=== PATIENT | male | born 1950 | race Caucasian/White ===

== ENCOUNTER → 2016-07-02 | Outpatient (CLI) | payer OTHER ==
[~2016-07-02] MED LIST: ASPI-391 PEG; ATOR10TA82 PO; HYDR25TA4 PO; LISI-725 PO; MULT-164 PO
[2016-07-02 13:51] LABS: ESTIMATED AVERAGE GLUCOSE 108 mg/dl; HA1C FLAG Normal (Normal)
== END ==
LOC: C.LABBFT 08:16
PROVIDERS: ATTEND Physician Assistant Medical
DX: R73.01 Impaired fasting glucose (principal)

== ENCOUNTER → 2016-11-30 | Outpatient (CLI) | payer OTHER ==
[~2016-11-30] MED LIST changes: -ASPI-391 PEG; -ATOR10TA82 PO
[2016-11-30 13:05] LABS: ESTIMATED AVERAGE GLUCOSE 111 mg/dl; HA1C FLAG Normal (Normal)
[2016-11-30 13:25] LABS: ALB/GLOB RATIO 1.1 (0.9-2); ALT/SGPT 26 U/L (12-78); AST/SGOT 12 U/L (15-37); BLOOD UREA NITROGEN 16 mg/dl (7-18); BUN/CREATININE RATIO 12.5 (10-20); CALCIUM 9.1 mg/dl (8.5-10.1); CARBON DIOXIDE 26 mmol/L (21-32); CHLORIDE 104 mmol/L (98-107); GLUCOSE 96 mg/dl (70-99); SODIUM 137 mmol/L (136-145)
[2016-11-30 13:27] LABS: ALKALINE PHOSPHATASE 61 U/L (45-117); CHOLESTEROL 135 mg/dl (0-200); CHOLESTEROL/HDL RATIO 2.4; HDL CHOLESTEROL 57 mg/dl; LDL CHOLESTEROL CALCULATED 56 mg/dl; TRIGLYCERIDES 108 mg/dl (0-150); VERY LOW DENSITY LIPOPROT CALC 22 mg/dl
== END | disposition home or self-care (01) ==
LOC: C.LABBFT 07:35
PROVIDERS: ATTEND Physician Assistant Medical
DX: E78.5 Hyperlipidemia, unspecified (principal); R73.01 Impaired fasting glucose

== ENCOUNTER → 2016-12-14 | Outpatient (CLI) | payer OTHER ==
[2016-12-14 17:48] LABS: PROSTATE SPECIFIC ANTIGEN 3.3 ng/ml (0.000-4.000); THYROID STIMULATING HORMONE 0.901 uIu/ml (0.300-4.500)
== END | disposition home or self-care (01) ==
LOC: C.LABBFT 13:14
PROVIDERS: ATTEND Internal Medicine
DX: R53.83 Other fatigue (principal); N40.0 Benign prostatic hyperplasia without lower urinary tract symptoms

== ENCOUNTER 2017-03-09 06:53 | Day surgery (SDC) | payer OTHER ==
[2017-02-16 13:04] VITALS: Ht 182.9 cm; Wt 100.8 kg
--- NOTE | 2017-02-16 13:30 | PAT Medication Instructions ---
Service Date Feb 16, 2017. Current Home Medication List Njfmxnf-Sdikrrfsgtzke-Snmsbcop (Excedrin Extra Strength), 2 TAB PEG PRN Atorvastatin (Lipitor), 10 MG PO HS Hydrochlorothiazide (Hctz), 25 MG PO QAM Lisinopril (Zestril), 20 MG PO QAM Medication Instructions For Your Scheduled Surgery - Check with surgeon for instructions: Vddwyfe-Lsqtoeedoalvi-Wudtogpo (Excedrin Extra Strength), 2 TAB PEG PRN - Hold the following medications the morning of surgery: Hydrochlorothiazide (Hctz), 25 MG PO QAM Lisinopril (Zestril), 20 MG PO QAM - Take the following medications as scheduled the night before surgery: Atorvastatin (Lipitor), 10 MG PO HS If you have any questions please call us at [phone] or [phone] or [phone]
--- NOTE | 2017-02-16 14:22 | DIAGNOSTIC IMAGING REPORT ---
CHEST 2 VIEWS ROUTINE HISTORY: 66 years-old Male pat preoperative exam. Benign prostatic hyperplasia. No acute chest complaints COMPARISON: None available TECHNIQUE: PA and lateral views of the chest FINDINGS: Catheter granulomas of the lateral left midlung are noted. No pneumothorax, pleural effusion, focal airspace consolidation or overt pulmonary edema. Cardiomediastinal and hilar silhouettes are within normal limits. Bones of the chest are grossly intact. Degenerative changes involve the spine and shoulders. IMPRESSION: No acute cardiopulmonary process. The above report was generated using voice recognition software. It may contain grammatical, syntax or spelling errors. Electronically signed by: Jessee Ramsey M.D. 02/16/2017 2:20 PM Dictated Date/Time: 02/16/2017 2:20 PM
[2017-02-16 14:32] LABS: BASO % 0.4 %; BASO ABS # 0.04 K/uL (0-0.2); COMPLETE YES; EOS % 1.2 %; HEMATOCRIT 43.1 % (42-52); IG% 0.7 %; LYMPH % 16.7 %; LYMPH ABS # 1.74 K/uL (1.2-3.4); MEAN CELL VOLUME 90.7 fL (80-100); MEAN CORPUSCULAR HEMOGLOBIN 32.2 pg (25-34); MEAN CORPUSCULAR HGB CONC 35.5 g/dl (32-36); MEAN PLATELET VOLUME 9.5 fL (7.4-10.4); MONO % 6.6 %; NEUT % 74.4 %; PLATELET COUNT 259 K/uL (130-400); RED BLOOD COUNT 4.75 M/uL (4.7-6.1); WHITE BLOOD COUNT 10.41 K/uL (4.8-10.8)
[2017-02-16 14:32] LABS: URINE APPEARANCE CLEAR (CLEAR); URINE BILIRUBIN NEG (NEG); URINE COLOR YELLOW; URINE NITRITE NEG (NEG); URINE PH 5.5 (4.5-7.5); URINE SPECIFIC GRAVITY 1.018 (1.000-1.030); UROBILINOGEN NEG (NEG)
[2017-02-16 14:34] LABS: MANUAL MICROSCOPIC REQUIRED? NO; REVIEW REQ? NO
[2017-02-16 14:53] LABS: BUN/CREATININE RATIO 14.8 (10-20); CALCIUM 9.1 mg/dl (8.5-10.1); CREATININE 1.35 mg/dl (0.60-1.40)
[~2017-03-09] VITALS: Ht 182.9 cm; Wt 100.8 kg
[~2017-03-09 06:53] MED LIST changes: +ASPI-391 PEG; +ATOR10TA82 PO; +CIPROFLOXACIN / D5W 400 MG IV SCH; +LACTATED RINGER'S 1000ML 1,000 ML IV SCH; -MULT-164 PO
[2017-03-09 07:15] VITALS: BP 137/87; PULSE 80; TEMP 36.9; O2SAT 95
[2017-03-09] MEDS ORDERED: HYDROmorphone INJ 1 MG/ML SYR IV PRN (08:15)
[2017-03-09] MEDS ORDERED: ONDANSETRON INJ 2 MG/ML 2 ML VIAL IV PRN (08:15)
[2017-03-09] MEDS ORDERED: ATROPINE SULFATE 0.1 MG/ML 5ML SYR IV PRN (08:15)
[2017-03-09] MEDS ORDERED: FENTANYL CITRATE INJ 50 MCG/1 ML 2 ML VIAL IV PRN (08:15)
[2017-03-09] MEDS ORDERED: PROMETHAZINE HCL INJ 12.5 MG in SODIUM CHLORIDE 0.9% 50ML 50 ML IV PRN (08:15)
[2017-03-09] MEDS ORDERED: EpHEDrine SULFATE INJ 50 MG/ML AMP IV PRN (08:15)
[2017-03-09] MEDS ORDERED: PROPOFOL IV EMULSION 10 MG/ML 20 ML VIAL IV ONE (09:13)
[2017-03-09] MEDS ORDERED: LIDOCAINE HCL 2% 2 ML VIAL (20MG/ML) ONE (09:13)
[2017-03-09] MEDS ORDERED: MIDAZOLAM HCL 1 MG/ML 2ML VIAL ONE (09:13)
[2017-03-09] MEDS ORDERED: FENTANYL CITRATE INJ 50 MCG/1 ML 2 ML VIAL ONE (09:13)
--- NOTE | 2017-03-09 09:13 | History & Physical Bridge Note ---
H&P Re-Evaluation Bridge Note: I have examined the patient, reviewed the History & Physical and in the interval since the performance of the History & Physical I have noted the following changes of clinical significance: No changes noted
[2017-03-09] MEDS ORDERED: PHEN95TA14 PO (09:24)
[2017-03-09] MEDS ORDERED: HYDR-5688 PO (09:24)
[2017-03-09] MEDS ORDERED: CIPR-255 PO (09:24)
--- NOTE | 2017-03-09 09:25 | Discharge Instructions ---
Discharge Instructions Date of Service Mar 09, 2017. Admission Reason for Admission: Benign Prostatic Hyperplasia Discharge Discharge Diagnosis / Problem: BPH Discharge Goals Goal(s): Decrease discomfort, Improve function, Increase independence, Improve disease control Activity Recommendations Activity Limitations: resume your previous activity Lifting Limitations: none Exercise/Sports Limitations: none May Resume Sexual Activity: when tolerated Shower/Bathe: no limitations Driving or Machine Use: resume 1 day after discharge . Instructions / Follow-Up Instructions / Follow-Up Please keep your previously scheduled follow up appointment. Current Hospital Diet Patient's current hospital diet: Discharge Diet Recommended Diet: Regular Diet Pending Studies Studies pending at discharge: no Medical Emergencies . Who to Call and When: Medical Emergencies: If at any time you feel your situation is an emergency, please call 911 immediately. . Non-Emergent Contact Non-Emergency issues call your: Urologist Call Non-Emergent contact if: you have a fever, temperature is above 101.5, your pain is not controlled, your pain is worsening . . "Provider Documentation" section prepared by Pipo Piña. . VTE Core Measure Inpt VTE Proph given/why not?: Treatment not indicated [place] Drug Monitoring Program Search Results: patient reviewed within database, no issues identified
[2017-03-09] MEDS ORDERED: SODIUM CHLORIDE 0.9% 1000ML 1,000 ML IV SCH (09:54)
[2017-03-09] MEDS ORDERED: PHENAZOPYRIDINE HCL 200 MG TAB PO STA (09:54)
--- NOTE | 2017-03-09 09:56 | [facility] Operative Report ---
Operative Report Operative Date Mar 09, 2017. Pre-Operative Diagnosis Benign Prostatic Hyperplasia Post-Operative Diagnosis Benign Prostatic Hyperplasia Procedure(s) Performed Cystoscopy & Urolift Surgeon Dr.C. Gonzalez Lumber Racker Surgeon(s) none Estimated Blood Loss 0mL Findings Lateral lobe hypertrophy with a moderately high bladder neck; healthy-appearing bladder Specimens none per surgeon Drains none Anesthesia sedation Complication(s) None Disposition Recovery Room / PACU Indications Symptomatic BPH Description of Procedure Patient was identified in the preoperative holding area, appropriate informed consents were reviewed and completed and the patient was transported to the operating suite. Upon arrival he received appropriate preoperative antibiotics in the form of ciprofloxacin. Adequate sedation was achieved, and he was placed in dorsal lithotomy position where he was sterilely prepped and draped in standard fashion. I began the case by passing a cystoscope with 0 lens. Inspection of the urethra revealed healthy-appearing mucosa without evidence of strictures. Prostate was inspected, and he was noted to have lateral lobe hypertrophy. Full inspection of the bladder was carried out. There were no tumors, stones, or other abnormalities. I then exchanged visual obturator for the first uro-lift device. The first suture was deployed on the right side of the prostate approximately 1 cm in from the bladder neck. A mirror image suture was then deployed on the left. A third suture was placed adjacent to the verumontanum on the right. A fourth suture was placed in a mirror image of this location on the left. There was excellent hemostasis. I reinspected the bladder and prostate and confirmed an excellent anterior channel. I attest to the content of the Intraoperative Record and any orders documented therein. Any exceptions are noted below.
[2017-03-09] MEDS ORDERED: OXYCODONE/ACETAMINOPHEN 5-325 TAB PO PRN ×2 (10:00)
--- NOTE | 2017-03-09 10:11 | Anesthesiology Progress Note ---
Anesthesia Post Op Note Date & Time Mar 09, 2017 at 10:11 Vital Signs Pain Intensity: 0 Vital Signs Past 12 Hours Date Time Temp Pulse Resp B/P (MAP) Pulse Ox O2 Delivery O2 Flow Rate FiO2 03/09/17 07:15 36.9 80 18 137/87 (104) 95 Room Air Notes Mental Status: alert / awake / arousable, participated in evaluation Pt Amnestic to Procedure: Yes Nausea / Vomiting: adequately controlled Pain: adequately controlled Airway Patency, RR, SpO2: stable & adequate BP & HR: stable & adequate Hydration State: stable & adequate Anesthetic Complications: no major complications apparent Awake, doing well, no complaints.
[2017-03-09 10:30] VITALS: BP 133/94; PULSE 78; TEMP 36.5; O2SAT 96
[2017-03-09 11:00] VITALS: BP 156/92; PULSE 84; TEMP 36.5; O2SAT 96
== END 2017-03-09 11:10 | disposition home or self-care (01) ==
LOC: C.ACU 06:53
PROVIDERS: ATTEND Urology
DX: N40.1 Benign prostatic hyperplasia with lower urinary tract symptoms (principal); N13.8 Other obstructive and reflux uropathy; I10 Essential (primary) hypertension; E78.5 Hyperlipidemia, unspecified; M15.9 Polyosteoarthritis, unspecified; R73.01 Impaired fasting glucose; Z87.891 Personal history of nicotine dependence; Z79.899 Other long term (current) drug therapy; E66.9 Obesity, unspecified; Z68.30 Body mass index [BMI] 30.0-30.9, adult

== ENCOUNTER 2020-02-05 08:20 | Inpatient (IN) ==
--- NOTE | 2020-01-18 10:25 | Anesthesiology Consultation ---
Date of Service January 18, 2020 Assessment & Plan (1) Encounter for pre-operative examination: Per assessment on 01/16: Travel screen negative. No known COVID-19 positive contacts or current COVID-19 related symptoms. Surgeon arranging preop COVID testing. Awaiting results. Chart Review Chart Review: Acceptable Risk for Surgery and Patient NOT seen in Pre Admission Testing History Surgery Operation Date: 02/05/20 11:00 Proposed Procedures p Right Total Shoulder Arthroplasty - Fernando Paulson DO s Versus Reverse Total Shoulder Arthroplasty - Fernando Paulson DO Height/Weight Height: 6 ft Weight: 99.79 kg Allergies Allergy/AdvReac Type Severity Reaction Status Date / Time No Known Allergies Allergy Unknown Verified 01/17/20 15:08 Medications Home Medications Medication Instructions Recorded Confirmed Last Taken multivitamin 1 tab PO QAM 12/20/18 01/17/20 Unknown meloxicam 15 mg tablet 15 mg PO DAILY PRN 12/26/19 01/17/20 Unknown atorvastatin 10 mg PO PM 01/17/20 01/17/20 Unknown glucosamine sulfate [Glucosamine] 500 mg PO QAM 01/17/20 01/17/20 Unknown hydrochlorothiazide 25 mg PO QAM 01/17/20 01/17/20 Unknown lisinopril 20 mg PO QAM 01/17/20 01/17/20 Unknown Past Medical History Medical History BPH (benign prostatic hyperplasia) Elevated PSA under surveillance Hyperlipidemia Hypertension Osteoarthritis Past Family History Family History Father Cancer Lung cancer Mother Ovarian cancer Brother Cancer Sister Hypertension Denies family history of Prostate cancer Diabetes Depression Myocardial infarction Breast cancer Stroke Past Surgical History Surgical History History of colonoscopy History of herniorrhaphy History of prostate surgery + stent Social History Smoking Status: Former smoker tobacco type: smokeless tobacco Do You Dip or Chew Tobacco: Yes (1 can/3-4 days: RN advised NPO AM DOS) Smoking End Date: Quit Hx Alcohol Use: No Hx Substance Use: No substance use type: does not use Testing Laboratory Results Blood Type A Positive 01/15/20 15:40 Antibody Screen NEGATIVE 01/15/20 15:40 01/15/20 WBC 11.35 H/H 16.3/47.6 PLATELETS 276 SODIUM 139 POTASSIUM 4.3 CHLORIDE 107 CO2 29 BUN 28 CREATININE 1.43 GLUCOSE 82 PT 10.3 PTT 27.9 INR 1.0 12/18/19 HGBA1C 5.5% Electrocardiogram Date: 01/15/20 Findings: + NSR @ (80) Chest X-Ray Date: 01/15/20 FINDINGS: Stable punctate calcified granulomas within left midlung zone. The lungs are otherwise clear. No pleural effusions. No pneumothorax. The heart is normal in size. IMPRESSION: No significant change compared to the prior study. No acute process.
--- NOTE | 2020-01-31 20:31 | History & Physical Report ---
Date of Service January 31, 2020 Assessment & Plan (1) Osteoarthritis of right shoulder: We will proceed with a right total shoulder arthroplasty. Postoperatively he will be placed in a sling and kept overnight in the hospital for postoperative medical management. He plans to go to [facility] and [place] upon discharge. Present on Admission?: Yes History of Present Illness Chief Complaint: Primary osteoarthritis of the right shoulder Primary Care Provider: Sid Zacarias MD Jonathan is a pleasant 69-year-old male who is been dealing with chronic increasing right shoulder pain. X-rays and clinical examination have been diagnostic for advanced osteoarthritis of the right shoulder. After failing conservative treatment, he has elected to proceed with a right total shoulder arthroplasty. Allergies Allergy/AdvReac Type Severity Reaction Status Date / Time No Known Allergies Allergy Unknown Verified 01/17/20 15:08 Home Medications Home Medications Medication Instructions Recorded Confirmed Type multivitamin 1 tab PO QAM 12/20/18 01/17/20 History meloxicam 15 mg tablet 15 mg PO DAILY PRN 12/26/19 01/17/20 History glucosamine sulfate [Glucosamine] 500 mg PO QAM 01/17/20 01/17/20 History hydrochlorothiazide 25 mg PO QAM 01/17/20 01/17/20 History lisinopril 20 mg PO QAM 01/17/20 01/17/20 History atorvastatin 10 mg tablet 10 mg PO DAILY #90 tab 01/24/20 Rx Past Med/Surg History Medical History BPH (benign prostatic hyperplasia) Elevated PSA under surveillance Hyperlipidemia Hypertension Osteoarthritis Surgical History History of colonoscopy History of herniorrhaphy History of prostate surgery + stent Family History Father Cancer Lung cancer Mother Ovarian cancer Brother Cancer Sister Hypertension Denies family history of Prostate cancer Diabetes Depression Myocardial infarction Breast cancer Stroke Social History Smoking Status: Former smoker Tobacco Type: Smokeless Tobacco (Dip or Chew) Second Hand Exposure: Yes; Hx Alcohol Use: No Hx Substance Use: No Preferred Language: Slovenian Communication Ability: Effective Outgoing Inspector Required: No Beliefs That Will Affect Care: None marital status: Current Living Situation: Spouse current occupational status: employed 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 Feels Safe at Home: Yes Childhood Exposure to Second-Hand Smoke: No caffeine: Yes (coffee daily) Dental Care, Regularly: Yes Physical Activity Frequency: Does not Exercise Seatbelt Use: always Sunscreen Use: Yes Assistive Devices: Glasses Review of Systems Review of Systems: All systems reviewed & are unremarkable except as noted in HPI & below Physical Exam Constitutional: WD/WN, vitals as above Eyes: PERRL, conjunctivae normal, anicteric sclerae ENMT: external ear and nose normal, oropharynx normal Neck: trachea midline, no thyromegaly Respiratory: normal respiratory effort Cardiovascular: RRR, no murmur, no edema Gastrointestinal (Abdomen): normal bowel sounds, soft, nontender, no hepatosplenomegaly Musculoskeletal: Physical examination of the right shoulder reveals decreased range of motion and crepitis throughout. There is good strength with full can t esting and external rotation. There is tenderness palpation along the anterior glenohumeral joint line. The right upper extremity is neurovascularly intact. Psychiatric: A+Ox3, euthymic affect Results & Data Results & Data ([facility]) Diagnostic Findings Radiographs of the right shoulder show osteoarthritis of the glenohumeral joint. There is joint space narrowing, osteophyte formation, and [id number] articulation. PG Care Time/CCT Total # of Minutes Spent Total Time Spent with Patient: Total time spent is greater than 50% in coordination of care (as documented) at patient's floor/unit and/or counseling patient: Coding Level of Care Code None Diagnoses Osteoarthritis of right shoulder M19.011
[~2020-02-05 08:20] MED LIST changes: +ACETAMINOPHEN 500 MG TAB PO SCH; -ASPI-391 PEG; -ATOR10TA82 PO; +BUPIVACAINE 0.5 % 5 MG/1 ML PF 10ML VIAL ONE; -CIPROFLOXACIN / D5W 400 MG IV SCH; +FAMOTIDINE 20 MG TAB PO SCH; +GABAPENTIN 300 MG CAP PO SCH; -HYDR25TA4 PO; -LACTATED RINGER'S 1000ML 1,000 ML IV SCH; -LISI-725 PO; +LR 15ML/HR IV SCH; +LR 60ML/HR IV SCH; +ROPIVACAINE 0.5% HCL/PF 150 MG, BUPIVACAINE 0.5% MPF 30 ML, EPINEPHrine 30MG/30ML (OR U... INSTIL SCH; +TRANEXAMIC ACID 1,000 MG **IV Intra-op IV SCH; +TRANEXAMIC ACID 1,000 MG **IV Pre-op IV SCH; +ceFAZolin 2000MG 2,000 MG/15 ML SYR IV SCH; +dexAMETHasone 4 MG TAB PO SCH
--- NOTE | 2020-02-05 09:35 | History & Physical Bridge Note ---
Date of Service February 05, 2020 History & Physical Bridge Note I have examined the patient, reviewed the History & Physical and in the interval since the performance of the History & Physical I have noted the following changes of clinical significance: no changes noted
[2020-02-05] MEDS ORDERED: DEXAMETHASONE SOD INJ 4 MG/ML VIAL ONE (10:10)
[2020-02-05] MEDS ORDERED: PROPOFOL IV EMULSION 10 MG/ML 20 ML VIAL IV ONE (10:10)
[2020-02-05] MEDS ORDERED: LIDOCAINE HCL 2% 2 ML VIAL/AMP(20MG/ML) INFIL ONE (10:10)
[2020-02-05] MEDS ORDERED: ROCURONIUM BROMIDE 10 MG/ML 5 ML VIAL IV ONE (10:10)
[2020-02-05] MEDS ORDERED: fentaNYL citrate 100 MCG/2 ML VIAL ONE (10:10)
[2020-02-05] MEDS ORDERED: MIDAZOLAM HCL 1 MG/ML 2ML VIAL ONE (10:10)
[2020-02-05] MEDS ORDERED: ONDANSETRON INJ 2 MG/ML 2 ML VIAL ONE (10:10)
[2020-02-05] MEDS ORDERED: HYDROmorphone INJ 2 MG/ML SYR/VIAL IV PRN (11:02)
[2020-02-05] MEDS ORDERED: ATROPINE SULFATE 0.1 MG/ML 10ML SYR IV PRN (11:02)
[2020-02-05] MEDS ORDERED: ePHEDrine sulfate 50 MG/ML AMP IV PRN (11:02)
[2020-02-05] MEDS ORDERED: PROMETHAZINE HCL 6.25 MG in SODIUM CHLORIDE 0.9% 50 ML IV PRN (11:02)
[2020-02-05] MEDS ORDERED: ONDANSETRON INJ 2 MG/ML 2 ML VIAL IV PRN ×2 (11:02→14:46)
[2020-02-05] MEDS ORDERED: fentaNYL citrate 100 MCG/2 ML VIAL IV PRN (11:02)
[2020-02-05] MEDS ORDERED: ORTHO JOINT ANESTHETIC ONE (11:24)
[2020-02-05] MEDS ORDERED: NEOSTIGMINE METHYLSULFATE 5 MG/5 ML SYR ONE (13:21)
[2020-02-05] MEDS ORDERED: GLYCOPYRROLATE 0.2 MG/ML VIAL ONE (13:21)
--- NOTE | 2020-02-05 13:36 | Operative Report ---
PG Post Operative Report Pre & Post Diagnosis Operation Date: 02/05/20 10:55 Pre-Op Diagnosis: Right Shoulder Degenerative Joint Disease with tendinopathy of the long head of the biceps tendon Post-Op Diagnosis: Right Shoulder Degenerative Joint Disease with tendinopathy of the long head of the biceps tendon I identified the patient and participated in the time-out.: Yes Procedure Operation Date: 02/05/20 10:55 Actual Procedures p Right Total Shoulder Arthroplasty with open biceps tenodesis as a distinct and separate procedure (modifier 59) (Right) - Fernando Paulson DO Surgeon Fernando Paulson DO Auto Damage Insurance Appraiser Fernando Ribeiro PAC Estimated Blood Loss 300 Findings Consistent with Post-Op Diagnosis Specimens Right humeral head Complications none Disposition Disposition: Recovery Room Indications Jonathan is a pleasant six 9-year-old male who presented my office with chronic increasing right shoulder pain. X-rays and clinical examination were diagnostic for advanced osteoarthritis of the right shoulder. After failing conservative treatment, he elected to proceed with a right total shoulder arthroplasty. Description of Procedure A CPT code modifier 59: The long head of the biceps tendon was enlarged and inflamed consistent with tendinopathy. A tenodesis was opted. This was a separate and distinct portion of the procedure. For these reasons, a CPT code modifier 59 will be added to this case. Implants used: I used a [employer] Comprehensive total shoulder arthroplasty system with a size 20 press fit micro humeral stem, a size 54 x 21 eccentric humeral head, and a size 5 glenoid with a trabecular metal peg. The glenoid was cemented in place with Palacos G cement. Jonathan arrived at [facility] for the above procedure. He was seen in the preoperative holding area and the operative extremity was identified and signed. He was given a preoperative antibiotic, TXA, and an interscalene nerve block. He was taken back to the operating room, laid on table in supine position, and put under general anesthesia. He was then put into the beachchair position. The shoulder was then prepped and draped in sterile fashion. A timeout was done and the patient and the operative extremity was properly identified. A deltopectoral approach was used. Dissection was taken down through the fascia and the deltoid was retracted laterally and the conjoined tendon was retracted medially. The anterior shoulder was exposed. The biceps groove was opened up and the biceps tendon was examined extensively. The biceps tendon demonstrated enlargement and inflammatory changes consistent with longstanding inflammation in the context of osteoarthritis. The long head of the biceps tendon was then tenodesed to the upper border of the pectoralis major. This was a separate and distinct portion of the procedure. The subscapularis was then released off the lesser tuberosity with a centimeter of cuff tissue remaining. The inferior capsule was released and the humeral head was dislocated. The rotator cuff was inspected and intact. A canal finding reamer was sent down the center of the humeral canal. Sequential reaming up to a size 20 reamer was done. Offset reamer a proximal humeral resection guide was placed. The proximal humerus was resected at 135 of inclination and 30 of retroversion. Inferior osteophytes were then removed and the glenoid was exposed. Time was spent doing an appropriate labral release. The glenoid measured to be a size 5. A 3.2 mm Steinmann pin was placed in the central hole of the glenoid vault pin guide. The glenoid was then reamed with a propeller reamer. The central post cutter was then used to prepare for the central boss. The cannulated peripheral peg drill guide was then placed and 3 peg holes were drilled. The final size 5 glenoid was then cemented in place with Palacos G cement. Surrounding soft tissues were then injected with 100 cc of an orthopedic pain control cocktail. Once cement had dried the proximal humerus was once again exposed. Sequential broaching of the humerus up to a size 20 broach was done. Off that broach a size 54 x 21 eccentric humeral head was trialed. The shoulder was then reduced, brought through a full range of motion, and felt to be stable. The shoulder was then dislocated and the broach was removed. The final size 20 micro humeral stem implant was then impacted into place. A size 54 x 21 eccentric humeral head was then impacted onto the humeral stem. The shoulder was then reduced and once again brought through a full range of motion and felt to be stable. The subscapularis was then tenodesed back to the lesser tuberosity with transosseous FiberWire sutures and side to side sutures with the arm in 45 of external rotation. 2 sutures were placed in the lateral rotator interval. A dilute betadyne lavage was then done for 3 minutes. The joint was then irrigated with normal saline solution. Hemostasis was obtained. The interval was closed with 2-0 Vicryl suture. The skin was closed with 2-0 Vicryl and naseem. A Silverlon dressing was placed and the arm was rested in a regular arm sling. He was then extubated and transferred to a hospital bed. He was taken to the postanesthesia care unit in stable condition. He tolerated the procedure well. Fernando Ribeiro PA-C, was present for the entire procedure. He was critical for patient positioning, prepping, draping, retraction exposure, wound closure and application of sterile dressing. I attest to the content of the Intraoperative Record and any orders documented therein. Any exceptions are noted below.
--- NOTE | 2020-02-05 14:31 | XRay Report ---
XR shoulder RT min 2V routine CLINICAL HISTORY: Post shoulder surgery COMPARISON: Right shoulder radiographs January 08, 2020. FINDINGS: Alignment of the right shoulder arthroplasty is anatomic. There is no fracture or unexpect ed radiopaque foreign body. There are skin naseem. IMPRESSION: Expected findings following right shoulder arthroplasty. ACT 112: Negative or not required by law. Electronically signed by: Hakan Moore M.D. 02/05/2020 2:29 PM
[2020-02-05] MEDS ORDERED: bisacodyL 10 MG SUPP PR PRN (14:46)
[2020-02-05] MEDS ORDERED: NALOXONE HCL 0.4 MG/1 ML VIAL/CARP IV PRN (14:46)
[2020-02-05] MEDS ORDERED: MAGNESIUM HYDROXIDE SUSP 30 ML UDC PO PRN (14:46)
[2020-02-05] MEDS ORDERED: oxyCODONE HCL IR 5 MG TAB (IMMEDIATE RELEASE) PO PRN (14:46)
[2020-02-05] MEDS ORDERED: METOCLOPRAMIDE HCL INJ 5 MG/ML 2 ML VIAL IV PRN (14:46)
[2020-02-05] MEDS ORDERED: HYDROmorphone INJ 0.5 MG/0.5 ML SYR IV PRN (14:46)
--- NOTE | 2020-02-05 14:50 | Anesthesiology Progress Note ---
Date of Service February 05, 2020 Anesthesia Post Procedure Vital Signs Vital Signs: Temp Pulse Pulse Resp BP Pulse Ox 02/05/20 14:35 36.4 C L 73 14 119/81 93 02/05/20 14:24 36.4 C L 68 16 110/55 L 95 02/05/20 14:14 68 16 104/61 95 02/05/20 14:05 80 14 108/74 95 02/05/20 13:55 80 14 128/77 95 02/05/20 13:47 36.0 C L 86 14 146/84 H 95 02/05/20 09:24 75 20 128/95 96 02/05/20 08:45 36.8 C 79 18 147/88 H 95 Transfer of Care Handoff Completed per policy Notes Mental Status: alert / awake / arousable Patient Amnestic to Procedure: Yes Nausea / Vomiting: adequately controlled Pain: adequately controlled Airway Patency, RR, SpO2: stable & adequate BP & HR: stable & adequate Hydration State: stable & adequate Anesthetic Complications: no major complications apparent Notes: block working well in pacu
[2020-02-05] MEDS: SODIUM CHLORIDE 0.9% 1000ML 1,000 ML IV SCH ×2 (15:55→23:25)
[2020-02-05] MEDS: KETOROLAC 30 MG/ML VIAL IV SCH ×2 (16:03→21:23)
[2020-02-05] MEDS: ACETAMINOPHEN 500 MG TAB PO SCH ×2 (16:03→21:23)
[2020-02-05] MEDS: ceFAZolin 2000MG 2,000 MG/15 ML SYR IV SCH (19:40)
[2020-02-05] MEDS ORDERED: SENNA 8.6 MG TAB PO SCH (21:00)
[2020-02-05] MEDS: DOCUSATE SODIUM 100 MG CAP PO SCH (21:23)
[2020-02-06] MEDS: ceFAZolin 2000MG 2,000 MG/15 ML SYR IV SCH (03:13)
[2020-02-06] MEDS: KETOROLAC 30 MG/ML VIAL IV SCH ×2 (03:13→08:18)
[2020-02-06] MEDS: ACETAMINOPHEN 500 MG TAB PO SCH (05:27)
[2020-02-06 07:27] LABS: Eosinophils # (auto) 0.01 K/uL (0-0.5); Eosinophils % (auto) 0.1 %; Hematocrit (blood only) 40.3 % (42-52); Hemoglobin 13.6 g/dL (14.0-18.0); Immature Granulocytes # (auto) 0.07 K/uL (0.00-0.02); Immature Granulocytes % (auto) 0.4 %; Lymphocytes # (auto) 0.48 K/uL (1.2-3.4); Lymphocytes % (auto) 2.7 %; Mean Corpuscular Hemoglobin 31.1 pg (25-34); Mean Corpuscular Hgb Conc 33.7 g/dL (32-36); Monocytes # (auto) 0.83 K/uL (0.11-0.59); Monocytes % (auto) 4.7 %; Neutrophils # (auto) 16.37 K/uL (1.4-6.5); Neutrophils % (auto) 92.1 %; Platelet Count 242 K/uL (130-400); RDW Coefficient of Variation 12.3 % (11.5-14.5); RDW Standard Deviation 41.7 fL (36.4-46.3); Red Blood Count 4.38 M/uL (4.7-6.1); White Blood Count 17.76 K/uL (4.8-10.8)
--- NOTE | 2020-02-06 07:48 | Orthopedic Progress Note ---
Date of Service February 06, 2020 Assessment & Plan (1) Status post replacement of right shoulder joint: Jonathan's pain has been well controlled. He is recovering as expected up to this point. Patient will continue working with physical therapy for range of motion assistance. He will remain in the sling at all times with the exception of showering. From an orthopedic standpoint, he is ready for discharge. He is awaiting medical clearance. Once discharged, he will [facility] in 2 weeks for reevaluation at that time. Admission and Anticipated Discharge Date Admission Date: February 05, 2020 Chelsey Castillo was seen and examined at bedside today with Dr. Paulson. Patient's pain has been well controlled. He was able to sleep comfortably through the night. The numbness and tingling in his right upper extremity has diminished. He has been working with physical therapy for gentle range of motion exercises. He has no new complaints today. He denies any fever, chills, sweats. He is hoping for discharge soon. Review of Systems Constitutional: no fever, no chills and no problem reported Eyes: as per Subjective / HPI; no problem reported Ear, Nose, Mouth, Throat: as per Subjective / HPI; no problem reported Respiratory: as per Subjective / HPI; no problem reported Cardiovascular: no edema and no problem reported Gastrointestinal: no nausea, no vomiting and no problem reported Genitourinary: no problem reported Musculoskeletal: as per Subjective / HPI Integumentary: as per Subjective / HPI; no problem reported Neurologic: no tingling, no paresthesia and no problem reported Psychiatric: no problem reported Endocrine: as per Subjective / HPI Hematologic / Lymphatic: as per Subjective / HPI Allergy / Immunological: no problem reported Physical Exam Musculoskeletal: Jonathan was sitting comfortably in bed upon arrival today, in no acute distress. He is alert and oriented x3. Right upper extremity: Sling remained in place. He is able to flex and extend his wrist with full active range of motion of his digits. Overlying dressing appears clean and dry without evidence of discharge. Neurovascularly intact. Results & Data ([facility]) Vital Signs (Past 12 Hours) Vital Signs Temp Pulse Resp BP Pulse Ox 02/06/20 03:15 36.4 C L 74 16 107/68 94 02/05/20 23:11 36.4 C L 71 16 109/76 93 PG Care Time/CCT Total # of Minutes Spent Total Time Spent with Patient: Total time spent is greater than 50% in coordination of care (as documented) at patient's floor/unit and/or counseling patient: Coding Level of Care Code None Diagnoses Status post replacement of right shoulder joint Z96.611
--- NOTE | 2020-02-06 07:55 | Discharge Summary ---
Date of Service February 06, 2020 Admission HPI Per Admitting Provider Jonathan is a pleasant 69-year-old male who is been dealing with chronic increasing right shoulder pain. X-rays and clinical examination have been diagnostic for advanced osteoarthritis of the right shoulder. After failing conservative treatment, he has elected to proceed with a right total shoulder arthroplasty. Principal Diagnosis Right total shoulder replacement Discharge Data Allergies Allergy/AdvReac Type Severity Reaction Status Date / Time No Known Allergies Allergy Unknown Verified 02/05/20 08:39 Consultations 02/05/20 14:46 Consult Case Management - Discharge Planning Routine Procedures Performed Operation Date: 02/05/20 10:55 Actual Procedures p Right Total Shoulder Arthroplasty(Right) - Fernando Paulson DO Ordered Studies 02/05/20 05:00 US - OR guided needle placemen Routine Hospital Course (1) Status post replacement of right shoulder joint: Jonathan is a 69-year-old male who presented to [facility] on February 05, 2020 for right total shoulder arthroplasty. He was given general anesthetic and a right interscalene nerve block. The procedure was uncomplicated. He was then transferred to the general orthopedic floors. On postop day 1, his pain was well controlled. He did work with physical therapy for range of motion assistance. He wore his sling as instructed and will continue to do so. His H&H and vital signs appeared stable. He was then discharged home. He will follow-up in our orthopedic office in 2 weeks for reevaluation at that time. Total Time Total Time Spent Total Time Spent (In Minutes): 20 minutes Discharge Plan Discharge Items Patient Disposition: Home - Home Health Services Reason For Visit: Right Shoulder DJD Discharge Diagnosis: Right shoulder replacement Activity: As commented below Non-emergency contact: Surgeon Call non-emergency contact if: your wound has increased redness and your wound has increased drainage Follow-up/Referrals: Pipo Zacarias MD [Primary Care Provider] - Diet: Regular Addtl Attending Provider Instructions: Activity and Therapy Recommendations: * If you are using [facility] then therapy will be provided at your home until they feel you have accomplished all of your goals. * If you are using [facility] then Physical Therapy will be provided until they feel you are ready to start Outpatient Physical Therapy. * If you are not using home therapy then Outpatient Physical Therapy should start about 3-5 days from your day of surgery. Therapy will last about 8-12 weeks * Wear your sling for 3 weeks, unless otherwise instructed. You may remove your sling to shower and to dress, but otherwise, you should be in your sling at all times, including while sleeping * The shoulder replacement is very stable and you can use your hand while in the sling * You were shown a series of exercises in the hospital. Do these exercises daily including the exercises you were shown in physical therapy. Medications: * Narcotic You will likely be sent home from the hospital with a prescription for the narcotic pain medication that worked best throughout your stay. * Other medications may be prescribed for specific circumstances. If you have any questions, please call the office at . * Resume previous home medications unless otherwise instructed Dressing Care: Leave the Silverlon dressing in place for 7 days. After 7 days you may remove the dressing. If the incision is not draining then you may leave the naseem open to air. If there is a little bit of drainage or if the naseem are getting stuck on your clothing then cover the incision with a dry dressing. The naseem will be removed at your 2 week follow-up appointment. Showering: You may shower with the Silverlon dressing in place. Do not let the shower spray hit the dressing directly. Pat the Silverlon dressing dry. If the dressing becomes wet underneath, then simply remove the dressing. Keep the incision dry until you are 7 days out from the day of surgery. After 7 days you may remove the Silverlon dressing and shower with the naseem exposed. Let soapy water run over the naseem and pat them dry. Do not scrub or soak the incision. Things To Watch For: * Drainage from the incision site that occurs more than one week after your surgery. * Increased redness at the incision site. * Fever above 102 degrees Fahrenheit. * Unusual chest pain or shortness of breath. * Call [facility] at with any of the above problems Follow-Up Visit: Follow-up with Dr. Paulson's PA (Fernando Ribeiro) 2-3 weeks after your day of surgery. He will remove your naseem and answer any questions. If you have any additional questions or concerns, Dr Paulson is usually in the office at the same time and will be available An appointment was probably scheduled when you signed-up for surgery in the office. If you have any questions call More detailed instructions as well as Frequently Asked Questions were provided in a folder by our office when you signed-up for surgery. Please review these instructions when you get home. If you have any further questions or concerns, please feel free to call the office at [phone] Pending Studies at Discharge: No Stand-Alone Forms: My [facility], Smoking Cessation Medications and DC Order Prescriptions: New oxycodone 5 mg Tablet 5 mg PO Q4H PRN (Reason: pain) Qty: 30 RF: 0 Continued atorvastatin 10 mg tablet 10 mg PO DAILY Qty: 90 RF: 3 meloxicam 15 mg tablet 15 mg PO DAILY PRN (Reason: arthritis) RF: 0 multivitamin [Daily Multi-Vitamin] tablet 1 tab PO QAM RF: 0 glucosamine sulfate [Glucosamine] 500 mg Tablet 500 mg PO QAM RF: 0 lisinopril 20 mg tablet 20 mg PO QAM RF: 0 hydrochlorothiazide 25 mg tablet 25 mg PO QAM RF: 0 Discharge Orders: Discharge Order (Routine); Ordered 02/06/20 Ordered By: Fernando Paulson Admission Data Admit Date/Time: 02/05/20 13:51 Attending Provider: Fernando Paulson Admit Provider: Fernando Paulson Primary Care Provider: Pipo Zacarias
[2020-02-06] MEDS ORDERED: dexAMETHasone 4 MG TAB PO SCH (08:00)
--- NOTE | 2020-02-06 08:06 | Anesthesiology Progress Note ---
Date of Service February 06, 2020 Anesthesia Post Procedure Vital Signs Vital Signs: Temp Pulse Pulse Resp BP Pulse Ox 02/06/20 08:00 36.4 C L 76 16 114/78 94 02/06/20 07:58 36.4 C L 68 74 16 107/68 94 02/06/20 03:15 36.4 C L 74 16 107/68 94 02/05/20 23:11 36.4 C L 71 16 109/76 93 02/05/20 19:01 36.4 C L 73 18 114/75 92 02/05/20 17:40 36.9 C 77 18 127/83 94 02/05/20 15:47 36.4 C L 83 17 117/80 96 02/05/20 15:28 79 16 113/79 94 02/05/20 14:35 36.4 C L 73 14 119/81 93 02/05/20 14:24 36.4 C L 68 16 110/55 L 95 02/05/20 14:14 68 16 104/61 95 02/05/20 14:05 80 14 108/74 95 02/05/20 13:55 80 14 128/77 95 02/05/20 13:47 36.0 C L 86 14 146/84 H 95 02/05/20 09:24 75 20 128/95 96 02/05/20 08:45 36.8 C 79 18 147/88 H 95 Notes Mental Status: alert / awake / arousable and participated in evaluation Patient Amnestic to Procedure: Yes Nausea / Vomiting: adequately controlled Pain: adequately controlled Airway Patency, RR, SpO2: stable & adequate BP & HR: stable & adequate Hydration State: stable & adequate
[2020-02-06] MEDS: SODIUM CHLORIDE 0.9% 1000ML 1,000 ML IV SCH (08:17)
[2020-02-06] MEDS: DOCUSATE SODIUM 100 MG CAP PO SCH (08:17)
[2020-02-06 08:23] LABS: BUN Creatinine Ratio 19.8 (10-20); Calcium 8.3 mg/dl (8.5-10.1); Est GFR (Non-African American) 37.1; Potassium 4.1 mmol/L (3.5-5.1)
[2020-02-06] MEDS ORDERED: hydroCHLOROthiazide 25 MG TAB PO SCH (09:00)
[2020-02-06] MEDS ORDERED: ATORVASTATIN 10 MG TAB PO SCH (09:00)
[2020-02-06] MEDS ORDERED: MULTIVITAMIN TAB PO SCH (09:00)
[2020-02-06] MEDS ORDERED: lisinopril 20 MG TAB PO SCH (09:00)
== END 2020-02-06 11:10 | disposition home or self-care (01) | DRG 483 ==
LOC: ASU 08:20 → 3E 13:51

== ENCOUNTER 2022-06-01 08:24 | Observation (INO) ==
--- NOTE | 2022-04-24 15:24 | PAT Medication Instructions ---
Medication Instructions Date of Service April 24, 2022 Home Medications Medication Instructions Recorded meclizine 12.5 mg tablet See Rx Instructions PO TID PRN 05/15/20 dizziness #30 tabs lisinopril 20 mg tablet 20 mg PO QAM #90 tabs 09/16/21 amoxicillin 500 mg tablet 2,000 mg PO ONCE PRN prophylaxis 12/09/21 #4 tabs tadalafil 20 mg tablet 20 mg PO DAILY #30 tabs 12/31/21 atorvastatin 10 mg tablet 10 mg PO HS #90 tabs 01/09/22 meclizine 12.5 mg tablet See Rx Instructions PO TID PRN dizziness lisinopril 20 mg tablet 20 mg PO QAM amoxicillin 500 mg tablet 2,000 mg PO ONCE PRN prophylaxis tadalafil 20 mg tablet 20 mg PO DAILY atorvastatin 10 mg tablet 10 mg PO HS amlodipine 5 mg tablet 5 mg PO QAM famotidine 20 mg tablet 20 mg PO QAM Continue as directed amoxicillin 500 mg tablet 2,000 mg PO ONCE PRN prophylaxis (if needed) DO NOT take the morning of surgery lisinopril 20 mg tablet 20 mg PO QAM tadalafil 20 mg tablet 20 mg PO DAILY Take morning of surgery With a small sip of water, OTHERWISE NOTHING TO EAT OR DRINK AFTER MIDNIGHT: meclizine 12.5 mg tablet See Rx Instructions PO TID PRN dizziness (if needed) amlodipine 5 mg tablet 5 mg PO QAM famotidine 20 mg tablet 20 mg PO QAM Take evening before surgery meclizine 12.5 mg tablet See Rx Instructions PO TID PRN dizziness (if needed) atorvastatin 10 mg tablet 10 mg PO HS Other Notes If you have any questions please call us at [phone] or [phone] or [phone] or [phone]
--- NOTE | 2022-04-29 14:17 | Anesthesiology Consultation ---
Date of Service April 29, 2022 Assessment & Plan (1) Encounter for pre-operative examination: - bilat TKR discussion vs staged and patient wishes to proceed with bilat TKR. Chart Review Chart Review: Acceptable Risk for Surgery and Patient seen in Pre Admission Testing Teaching & Discussion Pre-Anesthesia Teaching/Discussion Notes: Instructed NPO after midnight before surgery, except medications with 15 cc of water. Medication instructions provided according to the PAT guidelines. History Surgery Operation Date: 06/01/22 10:40 Proposed Procedures p Total Knee Arthroplasty Bilateral - Fernando Paulson DO Height/Weight Height: 6 ft Weight: 98.883 kg Allergies Allergy/AdvReac Type Severity Reaction Status Date / Time No Known Allergies Allergy Unknown Verified 04/24/22 10:20 Medications Home Medications Medication Instructions Recorded Confirmed Last Taken meclizine 12.5 mg tablet See Rx Instructions PO TID PRN 05/15/20 04/24/22 Unknown dizziness #30 tabs lisinopril 20 mg tablet 20 mg PO QAM #90 tabs 09/16/21 04/24/22 Unknown amoxicillin 500 mg tablet 2,000 mg PO ONCE PRN prophylaxis 12/09/21 04/24/22 Unknown #4 tabs tadalafil 20 mg tablet 20 mg PO DAILY #30 tabs 12/31/21 04/24/22 Unknown atorvastatin 10 mg tablet 10 mg PO HS #90 tabs 01/09/22 04/24/22 Unknown amlodipine 5 mg tablet 5 mg PO QAM 04/24/22 04/24/22 Unknown famotidine 20 mg tablet 20 mg PO QAM 04/24/22 04/24/22 Unknown Past Medical History Medical History (Updated 04/29/22 @ 14:57 by Norma Yeung PA-C) Benign prostatic hyperplasia with urinary obstruction GERD (gastroesophageal reflux disease) controlled, stable per pt Hyperlipidemia Hypertension controlled, stable per pt Tubular adenoma of colon Vertigo hx of Patient denies h/o stroke, seizures, heart attack, heart failure, DM, blood cl ots or blood transfusions. Exercise / Class Metabolic Activity II 4-5 Yardwork/Stairs/Walk up hill (mild SOB with 1 FOS due to knee pain, denies chest discomfort; ongoing since knee dysfunction in recent months, denies change or worsening) Past Family History Family History Father Cancer Lung cancer Mother Ovarian cancer Brother Cancer Sister Hypertension Denies family history of Prostate cancer Diabetes Depression Myocardial infarction Breast cancer Stroke Past Surgical History Surgical History History of colonoscopy History of herniorrhaphy History of prostate surgery Uro-lift in 02/2017 per urology records History of tooth extraction S/P shoulder surgery (~05/2020) bilat replacements Status post replacement of right shoulder joint (~01/2020) Past Anesthesia History No Hx of Anesthesia Complications and No Family Hx of Anesthesia Complications History of PONV No Hx of PONV and No Hx of Motion Sickness Social History Smoking Status: Never smoker tobacco type: smokeless tobacco Do You Dip or Chew Tobacco: Yes (1 can per week to week and a half-advised) Hx Alcohol Use: Yes Alcohol type: beer alcohol intake frequency: a few times a month Hx Substance Use: No substance use type: does not use Review of Systems Snoring, denies witnessed apneas. Patient denies chest pain, fever, chills, cough, wheezing, or palpitations. Physical Exam Vital Signs Vitals BP 124/81 P 70 TEMP 98.2 SP02 96% on RA RESP 18 Physical Full cervical extension range of motion without pain TMD 3.5 finger breadths Mallampati Score 2 Dentition: one crown; denies chipped or loose teeth, implants or bridges Lungs: normal respiratory effort. Clear throughout to auscultation, no adventitious breath sounds Cardiac: regular rate and rhythm, no murmurs noted Carotid arteries: negative bruit bilat Lab Results Anesthesia Preop Results Results Anesthesia Widget: WBC 10.43 K/ul (4.8-10.8) 04/29/22 Hgb 15.8 g/dl (14.0-18.0) 04/29/22 Hct 44.7 % (42.0-52.0) 04/29/22 Plt 284 K/uL (130-400) 04/29/22 Na 142 mmol/L (136-145) 04/29/22 K 3.9 mmol/L (3.5-5.1) 04/29/22 Cl 109 mmol/L (98-107) H 04/29/22 CO2 27 mmol/L (21-32) 04/29/22 BUN 25 mg/dl (6-23) H 04/29/22 Creat 1.36 mg/dl (0.6-1.4) 04/29/22 Glucose Level 88 mg/dl (70-99(Fasting)) 04/29/22 PT 10.7 Seconds (9.0-12.0) 04/29/22 PTT 26.4 Seconds (21.0-31.0) 04/29/22 INR 1.0 (0.9-1.1) 04/29/22 Blood Type A Positive 04/29/22 Antibody Screen NEGATIVE 04/29/22 Testing Electrocardiogram Date: 04/29/22 NSR, rate 69 bpm Chest X-Ray Date: 04/29/22 No pneumothorax. No pleural effusions. Calcified granulomas again noted within the left lung. Otherwise, lungs are clear. The heart is normal in size. There are bilateral total shoulder arthroplasties noted. IMPRESSION: No acute process. COVID-19 Risk Screen Screening Information COVID-19 Screen Date: 04/29/22 Exposure 21 Days Family/Household +COVID Last 21 Days: No Exposure 10 Days Any COVID Exposure Last 10 Days: No Symptoms Last 10 Days Experienced COVID Sx Last 10 Days: No + COVID 0-90 Days COVID + in Last 0-90 Days: No
--- NOTE | 2022-05-28 09:07 | History & Physical Report ---
Date of Service May 28, 2022 Assessment & Plan (1) Osteoarthritis of knees, bilateral: We will proceed with bilateral total knee arthroplasties. Postoperatively he will be started on aspirin for DVT prophylaxis and kept overnight in the hospital for postop medical management. He plans to have the hospital set up home health before discharge. History of Present Illness Chief Complaint: Osteoarthritis bilateral knees. Primary Care Provider: Sid Zacarias MD Jonathan is a pleasant 71-year-old male who has been dealing with chronic worsening bilateral knee pain. X-rays and clinical examination have been diagnostic for advanced arthritis of both knees. I have been giving him serial injections for years. The injections are no longer helping. He has been doing some exercises and some strengthening without much relief. After failing conservative treatment, he has elected to proceed with bilateral total knee arthroplasties. Allergies Allergy/AdvReac Type Severity Reaction Status Date / Time No Known Allergies Allergy Unknown Verified 04/24/22 10:20 Home Medications Medication Instructions Recorded Confirmed Type meclizine 12.5 mg tablet See Rx Instructions PO TID PRN 05/15/20 04/24/22 Rx dizziness #30 tabs lisinopril 20 mg tablet 20 mg PO QAM #90 tabs 09/16/21 04/24/22 Rx amoxicillin 500 mg tablet 2,000 mg PO ONCE PRN prophylaxis 12/09/21 04/24/22 Rx #4 tabs tadalafil 20 mg tablet 20 mg PO DAILY #30 tabs 12/31/21 04/24/22 Rx atorvastatin 10 mg tablet 10 mg PO HS #90 tabs 01/09/22 04/24/22 Rx amlodipine 5 mg tablet 5 mg PO QAM 04/24/22 04/24/22 History famotidine 20 mg tablet 20 mg PO QAM 04/24/22 04/24/22 History Past Med/Surg History Medical History Benign prostatic hyperplasia with urinary obstruction GERD (gastroesophageal reflux disease) controlled, stable per pt Hyperlipidemia Hypertension controlled, stable per pt Tubular adenoma of colon Vertigo hx of Surgical History History of colonoscopy History of herniorrhaphy History of prostate surgery Uro-lift in 02/2017 per urology records History of tooth extraction S/P shoulder surgery (~05/2020) bilat replacements Status post replacement of right shoulder joint (~01/2020) Family History Father Cancer Lung cancer Mother Ovarian cancer Brother Cancer Sister Hypertension Denies family history of Prostate cancer Diabetes Depression Myocardial infarction Breast cancer Stroke Social History Smoking Status: Never smoker Tobacco Type: Smokeless Tobacco (Dip or Chew) Second Hand Exposure: No; Do You Dip or Chew Tobacco: Yes (1 can per week to week and a half-advised); Tobacco Cessation Education Requested by Patient: No Hx Alcohol Use: Yes Alcohol type: beer Alcohol Intake Frequency: Monthly or Less Hx Substance Use: No Preferred Language: Vincentian Communication Ability: Effective Street Worker Required: No Beliefs That Will Affect Care: None marital status: Current Living Situation: Spouse current occupational status: retired 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 Physical Exam On physical examination of the right knee, he has good range of motion of 0 to 120 degrees. There is no instability. There is pain over the distal medial femoral condyles and over the medial joint line.. Constitutional WD/WN, vitals as above Eyes PERRL, conjunctivae normal, anicteric sclerae ENMT external ear and nose normal, oropharynx normal Neck trachea midline, no thyromegaly Respiratory normal respiratory effort, lungs clear to auscultation Cardiovascular RRR, no murmur, no edema Gastrointestinal (Abdomen) normal bowel sounds, soft, nontender, no hepatosplenomegaly Skin no rashes, warm and dry Psychiatric A+Ox3, euthymic affect Results & Data Results & Data Laboratory Results . Diagnostic Findings X-rays of both knees show advanced osteoarthritis with joint space narrowing, osteophyte formation, and [id number] articulation.. PG Care Time/CCT Total # of Minutes Spent Total Time Spent with Patient: Total time spent is greater than 50% in coordination of care (as documented) at patient's floor/unit and/or counseling patient: Coding Level of Care Code None Diagnoses Osteoarthritis of knees, bilateral M17.0
[~2022-06-01 08:24] MED LIST changes: +BUPIVACAINE 0.25% 30 ML VIAL ONE; +DEXAMETHASONE SOD INJ 4 MG/ML VIAL ONE; +EPINEPHrine INJ 1 MG/ML AMP ONE; -LR 15ML/HR IV SCH; +LR 500ML BOLUS, THEN 15ML/HR IV SCH; +ORTHO JOINT MIX INFIL SCH; -ROPIVACAINE 0.5% HCL/PF 150 MG, BUPIVACAINE 0.5% MPF 30 ML, EPINEPHrine 30MG/30ML (OR U... INSTIL SCH
--- NOTE | 2022-06-01 09:29 | History & Physical Bridge Note ---
Date of Service June 01, 2022 History & Physical Bridge Note I have examined the patient, reviewed the History & Physical and in the interval since the performance of the History & Physical I have noted the following changes of clinical significance: no changes noted
[2022-06-01] MEDS ORDERED: ORTHO JOINT ANESTHETIC ONE (10:15)
[2022-06-01] MEDS ORDERED: fentaNYL citrate 100 MCG/2 ML VIAL ONE (10:33)
[2022-06-01] MEDS ORDERED: MIDAZOLAM HCL 1 MG/ML 2ML VIAL ONE (10:33)
[2022-06-01] MEDS ORDERED: PROPOFOL IV EMULSION 10 MG/ML 20 ML VIAL IV ONE ×3 (11:22→12:01)
[2022-06-01] MEDS ORDERED: ONDANSETRON INJ 2 MG/ML 2 ML VIAL ONE (11:22)
[2022-06-01] MEDS ORDERED: LIDOCAINE 2% MPF LOCAL 5 ML VIAL INFIL ONE (11:22)
[2022-06-01] MEDS ORDERED: BUPIVACAINE/EPINEPHRINE 0.5% MPF 1:200,000 30 ML VIAL ONE (11:56)
--- NOTE | 2022-06-01 13:06 | Operative Report ---
PG Post Operative Report Pre & Post Diagnosis Operation Date: 06/01/22 10:30 Pre-Op Diagnosis: Degenerative Joint Disease Knee, Bilateral Post-Op Diagnosis: Degenerative Joint Disease Knee, Bilateral I identified the patient and participated in the time-out.: Yes Procedure Operation Date: 06/01/22 10:30 Actual Procedures p Bilateral Total Knee Arthroplasty(Bilateral) - Fernando Paulson DO Surgeon Fernando Paulson DO Photo Printer Fernando Ribeiro PA-C Estimated Blood Loss 70 Findings Consistent with Post-Op Diagnosis Specimens Bilateral femoral and tibial bone Description of Procedure Jonathan arrived [facility] for the above procedure. He was seen in the preoperative holding area and both knees were identified and signed. He was given a preoperative antibiotic, TXA, a spinal anesthetic and adductor nerve blocks. He was taken back to the operating room and laid on the table in supine position. He was given basic sedation. Both knees were then prepped and draped in sterile fashion. A timeout was done, and the patient and the operative extremities were properly identified. Right knee implants used: I used a Steve Persona total knee arthroplasty system with a size 10 PS femur, H tibia, 37 oval patella, and a size 14 CPS polyethylene bearing. All components were cemented in place with Palacos G cement. A midline incision was made directly over the patella. Dissection was taken down to the extensor mechanism. A midvastus arthrotomy was used. The medial retinaculum was released and the fat pad was mostly excised. The knee was flexed and the ACL, PCL, and meniscus were removed. A drill was sent down the center of the femoral canal followed by an intramedullary hedy. Off that hedy a distal femoral cutting block was placed. 9 mm was resected off the distal femur at 5 of valgus. A posterior referencing AP sizing guide was then placed on the distal femur. The femur measured to be a size 10. 2 drill holes were placed in 3 of external rotation. A 4-in-1 cutting block was then impacted into place. Anterior, posterior, and chamfer cuts were then made. The proximal tibia was then exposed. An external tibial alignment guide was placed. A tibial cut guide was then anchored in place and the proximal tibia was then resected. The posterior aspect of the knee was then opened up and any additional meniscus fragments and osteophytes were removed. The tibia measured to be a size H. The tibial plate was then placed in the appropriate rotation and the tibia was drilled and punched. Trial components were then placed. I used a size 14 CPS polyethylene insert. The knee was brought through a full range of motion and felt to be stable. The peg holes for the femur were then drilled. The patella was then everted and 9 mm was resected off the posterior aspect of the patella. The patella measured to be a size 37 oval. 3 peg holes were then drilled. A trial patella was placed. The knee was once again brought through a full range of motion and felt to be stable. Trial components were then removed. The surrounding soft tissues were injected with 50 cc of an orthopedic pain control cocktail. All components were then cemented into place with Palacos G cement. The final polyethylene insert was then snapped into place. Once cement was dry the tourniquet was deflated. Hemostasis was obtained. A dilute betadyne lavage was then done for 3 minutes. The joint was then irrigated with normal saline solution. The midvastus arthrotomy was then closed with #1 Vicryl suture. The skin was closed with 2-0 Vicryl, 3-0V lock suture, and naseem. A Silverlon and a soft compressive dressing were placed. Left knee implants used: I used a Steve Persona total knee arthroplasty system with a size 10 PS femur, G tibia, 37 oval patella, and a size 12 CPS polyethylene bearing. All components were cemented in place with Palacos G cement. A midline incision was made directly over the patella. Dissection was taken down to the extensor mechanism. A midvastus arthrotomy was used. The medial retinaculum was released and the fat pad was mostly excised. The knee was flexed and the ACL, PCL, and meniscus were removed. A drill was sent down the center of the femoral canal followed by an intramedullary hedy. Off that hedy a distal femoral cutting block was placed. 9 mm was resected off the distal femur at 5 of valgus. A posterior referencing AP sizing guide was then placed on the distal femur. The femur measured to be a size 10. 2 drill holes were placed in 3 of external rotation. A 4-in-1 cutting block was then impacted into place. Anterior, posterior, and chamfer cuts were then made. The proximal tibia was then exposed. An external tibial alignment guide was placed. A tibial cut guide was then anchored in place and the proximal tibia was then resected. The posterior aspect of the knee was then opened up and any additional meniscus fragments and osteophytes were removed. The tibia measured to be a size G. The tibial plate was then placed in the appropriate rotation and the tibia was drilled and punched. Trial components were then placed. I used a size 12 CPS polyethylene insert. The knee was brought through a full range of motion and felt to be stable. The peg holes for the femur were then drilled. The patella was then everted and 9 mm was resected off the posterior aspect of the patella. The patella measured to be a size 37 oval. 3 peg holes were then drilled. A trial patella was placed. The knee was once again brought through a full range of motion and felt to be stable. Trial components were then removed. The surrounding soft tissues were injected with 50 cc of an orthopedic pain control cocktail. All components were then cemented into place with Palacos G cement. The final polyethylene insert was then snapped into place. Once cement was dry the tourniquet was deflated. Hemostasis was obtained. A dilute betadyne lavage was then done for 3 minutes. The joint was then irrigated with normal saline solution. The midvastus arthrotomy was then closed with #1 Vicryl suture. The skin was closed with 2-0 Vicryl, 3-0V lock suture, and naseem. A Silverlon and a soft compressive dressing were placed. He was then transferred to a hospital bed and taken to the postanesthesia care unit in stable condition. He tolerated the procedure well. Fernando Ribeiro PA-C, was present for the entire procedure. He was critical for patient positioning, prepping, draping, retraction exposure, wound closure and application of sterile dressing. I attest to the content of the Intraoperative Record and any orders documented therein. Any exceptions are noted below.
--- NOTE | 2022-06-01 14:01 | Anesthesiology Progress Note ---
Date of Service June 01, 2022 Anesthesia Post Procedure Vital Signs Vital Signs: Temp Pulse Resp BP Pulse Ox O2 Del Method O2 Flow Rate 06/01/22 13:50 63 19 115/66 100 Oxymask 5 06/01/22 13:41 36.1 C L 60 19 133/72 100 Oxymask 5 06/01/22 09:19 36.7 C 72 20 133/84 95 Room Air Transfer of Care Handoff Completed per policy Notes Mental Status: alert / awake / arousable Patient Amnestic to Procedure: Yes Nausea / Vomiting: adequately controlled Pain: adequately controlled Airway Patency, RR, SpO2: stable & adequate BP & HR: stable & adequate Hydration State: stable & adequate Neuraxial Anesthesia: was administered and sensory block is resolving Anesthetic Complications: no major complications apparent and Pt Satisfied with anesthetic care
--- NOTE | 2022-06-01 14:17 | XRay Report ---
TWO VIEWS RIGHT KNEE CLINICAL HISTORY: Postoperative examination. FINDINGS: AP and crosstable lateral portable views of the right knee are obtained. A right knee arthr oplasty is in near anatomic alignment. There has been undersurface remodeling of the patella. No acut e fracture is seen. There are expected postoperative changes around the knee including skin clips, so ft tissue edema, and subcutaneous gas. IMPRESSION: Expected postoperative changes status post right knee arthroplasty. No acute fracture is seen. ACT 112: Negative or not required by law. Electronically signed by: Soto Reyes M.D. 06/01/2022 2:16 PM
[2022-06-01] MEDS ORDERED: bisacodyL 10 MG SUPP PR PRN (14:33)
[2022-06-01] MEDS ORDERED: HYDROmorphone INJ 0.5 MG/0.5 ML SYR IV PRN (14:33)
[2022-06-01] MEDS ORDERED: oxyCODONE HCL IR 5 MG TAB (IMMEDIATE RELEASE) PO PRN (14:33)
[2022-06-01] MEDS ORDERED: METOCLOPRAMIDE HCL INJ 5 MG/ML 2 ML VIAL IV PRN (14:33)
[2022-06-01] MEDS ORDERED: NALOXONE HCL 0.4 MG/1 ML VIAL/CARP IV PRN (14:33)
[2022-06-01] MEDS ORDERED: ONDANSETRON INJ 2 MG/ML 2 ML VIAL IV PRN (14:33)
[2022-06-01] MEDS ORDERED: MAGNESIUM HYDROXIDE SUSP 30 ML UDC PO PRN (14:33)
--- NOTE | 2022-06-01 15:06 | XRay Report ---
XR knee LT 1 or 2V routine CLINICAL HISTORY: Postoperative evaluation. COMPARISON: Knee radiographs July 29, 2021. FINDINGS: Alignment of the total left knee arthroplasty is anatomic. There is no periprosthetic frac ture or unexpected radiopaque foreign body. There are skin naseem. IMPRESSION: Expected findings following total left knee arthroplasty. ACT 112: Negative or not required by law. Electronically signed by: Hakan Moore M.D. 06/01/2022 3:04 PM
[2022-06-01] MEDS: SODIUM CHLORIDE 0.9% 1000ML 1,000 ML IV SCH (15:13)
[2022-06-01] MEDS: KETOROLAC TROMETHAMINE 15 MG/ML VIAL IV SCH ×2 (15:14→21:42)
[2022-06-01] MEDS: ACETAMINOPHEN 500 MG TAB PO SCH ×2 (15:14→21:43)
[2022-06-01] MEDS ORDERED: ATORVASTATIN 10 MG TAB PO SCH (21:00)
[2022-06-01] MEDS ORDERED: SENNA 8.6 MG TAB PO SCH (21:00)
[2022-06-01] MEDS: ceFAZolin 2000MG 2,000 MG/15 ML SYR IV SCH (21:42)
[2022-06-01] MEDS: ASPIRIN 81 MG ECTAB PO SCH (21:43)
[2022-06-01] MEDS: DOCUSATE SODIUM 100 MG CAP PO SCH (21:43)
[2022-06-02] MEDS: SODIUM CHLORIDE 0.9% 1000ML 1,000 ML IV SCH (01:27)
[2022-06-02] MEDS: ceFAZolin 2000MG 2,000 MG/15 ML SYR IV SCH (03:01)
[2022-06-02] MEDS: KETOROLAC TROMETHAMINE 15 MG/ML VIAL IV SCH ×3 (03:02→15:10)
[2022-06-02] MEDS: ACETAMINOPHEN 500 MG TAB PO SCH ×2 (06:12→15:10)
--- NOTE | 2022-06-02 06:54 | Orthopedic Progress Note ---
Date of Service June 02, 2022 Assessment & Plan (1) Status post bilateral knee replacements: Overall he is doing well. Is not having much pain in his knees. He will be seen by physical therapy today for ambulation and range of motion exercises. He is on aspirin for DVT prophylaxis. The nursing staff can change his dressings after physical therapy. If he does well with therapy, he can be discharged home. He will follow-up with orthopedics in 2 weeks. Chelsey Castillo was seen and examined at bedside this morning. Overall is doing fairly well. Is not having too much pain in his knees. He has not been up and ambulating much yet. He has no new complaints.. Review of Systems All systems reviewed & are unremarkable except as noted in HPI & below. Physical Exam On physical examination of both knees, the dressings are clean and dry. Her legs are out in full extension. He has active dorsiflexion and plantarflexion of his ankles.. Results & Data Results & Data Laboratory Results . Diagnostic Findings Postoperative x-rays of both knees show the prosthesis to be in anatomic alignment without any evidence of fracture, education, or loosening. PG Care Time/CCT Total # of Minutes Spent Total Time Spent with Patient: Total time spent is greater than 50% in coordination of care (as documented) at patient's floor/unit and/or counseling patient: Coding Level of Care Code 96177 Post Operative Follow-Up Diagnoses Status post bilateral knee replacements Z96.653
--- NOTE | 2022-06-02 06:55 | Discharge Summary ---
Date of Service June 02, 2022 Admission HPI (Per Admitting) Jonathan is a pleasant 71-year-old male who has been dealing with chronic worsening bilateral knee pain. X-rays and clinical examination have been diagnostic for advanced arthritis of both knees. I have been giving him serial injections for years. The injections are no longer helping. He has been doing some exercises and some strengthening without much relief. After failing conservative treatment, he has elected to proceed with bilateral total knee arthroplasties. Admission Exam (Per Admitting) On physical examination of the right knee, he has good range of motion of 0 to 120 degrees. There is no instability. There is pain over the distal medial femoral condyles and over the medial joint line.. Principal Diagnosis Same as "Discharge Diagnosis" noted below under Discharge Instructions. Discharge Exam On physical examination of both knees, the dressings are clean and dry. Her legs are out in full extension. He has active dorsiflexion and plantarflexion of his ankles.. Discharge Data Procedures Performed Operation Date: 06/01/22 10:30 Actual Procedures p Bilateral Total Knee Arthroplasty(Bilateral) - Fernando Paulson DO Ordered Studies 06/01/22 05:00 US - OR guided needle placemen Routine Hospital Course (1) Status post bilateral knee replacements: On June 01, 2022 Jonathan arrived to [facility] and underwent bilateral knee replacements complication. He had a spinal anesthetic. Postoperatively he was started on aspirin for DVT prophylaxis and transferred to the general orthopedic floors. His hospital course was uneventful. On postop day #1, his vital signs were stable and his pain was well controlled. He was able to parti cipate well with physical therapy doing ambulation and range of motion exercises. He was then discharged home. He will follow-up with orthopedics in 2 weeks. PG Care Time/CCT Total # of Minutes Spent Total Time Spent with Patient: Total time spent is greater than 50% in coordination of care (as documented) at patient's floor/unit and/or counseling patient: Discharge Plan Discharge Items Patient Disposition: Home - Home Health Services Reason For Visit: Degenerative Joint Disease Knee, Bilateral Discharge Diagnosis: Bilateral knee replacements Activity: Per Instructions section Non-emergency contact: Surgeon Call non-emergency contact if: your wound has increased redness and your wound has increased drainage Follow-up/Referrals: Sid Zacarias MD [Primary Care Provider] - Diet: Regular Addtl Attending Provider Instructions: Activity and Therapy Recommendations: * If you are using [facility] then therapy will be provided at your home until they feel you have accomplished all of your goals. * If you are using [facility] then Physical Therapy will be provided until they feel you are ready to start Outpatient Physical Therapy. * If you are not using home therapy then Outpatient Physical Therapy should start about 3-5 days from your day of surgery. Therapy will last about 6-10 weeks * It is important not to put a pillow under your knee when you are relaxing or sleeping. It is just as important to make sure you are getting your knee perfectly straight as it is to regain your knee bend. * You were shown a series of exercises in the hospital. Do these exercises three times each day including the exercises you were shown in physical therapy. * Get up and walk several times each day. For the first four weeks, try not to stand or walk for more than one hour at a time. If you do stand or walk for more than one hour, you will not hurt anything, but your leg will likely swell. * As you feel comfortable, you may change from the walker or crutches to a cane and then to independent walking. Medications: * Narcotic You will likely be sent home from the hospital with a prescription for the narcotic pain medication that worked best throughout your stay. * Aspirin Most patients will be required to take Aspirin 81mg twice a day for 6 weeks after surgery. This is obtained [id number] and a prescription is not necessary. * Other medications may be prescribed for specific circumstances. If you have any questions, please call the office at . * Resume previous home medications unless otherwise instructed TEDs/Elastic Stockings: The white elastic stockings help limit swelling and prevent blood clots from forming in your legs.~ The more you wear them, the more they work. Wear them for six weeks. Dressing Care: The dressing can be changed after physical therapy on postop day #1. Daily dry dressing changes for a few days, especially if the incision is still draining some. If the incision is not draining then you may leave the naseem open to air. If there is a little bit of drainage or if the naseem are getting stuck on your clothing then cover the incision with a dry dressing. The naseem will be removed at your 2 week follow-up appointment. Showering: You may shower 5 days from the day of surgery as long as the incision is no lo nger draining. You may shower with the naseem exposed. Let soapy water run over the naseem and pat them dry. Do not scrub or soak the incision. Things To Watch For: * Drainage from the incision site that occurs more than one week after your surgery. * Increased redness at the incision site. * Fever above 102 degrees Fahrenheit. * Unusual chest pain or shortness of breath. * Call [facility] at with any of the above problems Follow-Up Visit: Follow-up with Dr. Paulson's PA (Fernando Ribeiro) 2-3 weeks after your day of surgery. He will remove your naseem and answer any questions. If you have any additional questions or concerns, Dr Paulson is usually in the office at the same time and will be available An appointment was probably scheduled when you signed-up for surgery in the office. If you have any questions call Office Instructions: More detailed instructions as well as Frequently Asked Questions were provided in a folder by our office when you signed-up for surgery. Please review these instructions when you get home. If you have any further questions or concerns, please feel free to call the office at [phone] Pending Studies at Discharge: No Stand-Alone Forms: My [facility], Smoking Cessation Medications and DC Order Prescriptions: New aspirin 81 mg Tablet,Delayed Release (Dr/Ec) 81 mg PO BID 42 Days Qty: 84 0RF oxycodone-acetaminophen 5-325 mg tablet 1 tab PO Q6H PRN (Reason: pain) Qty: 30 0RF Continued lisinopril 20 mg tablet 20 mg PO QAM Qty: 90 3RF atorvastatin 10 mg tablet 10 mg PO HS Qty: 90 3RF tadalafil 20 mg tablet 20 mg PO DAILY Qty: 30 11RF amlodipine 5 mg tablet 5 mg PO QAM famotidine 20 mg tablet 20 mg PO QAM Admission Data Admit Date/Time: 06/01/22 13:45 Attending Provider: Fernando Paulson Admit Provider: Fernando Paulson Primary Care Provider: Sid Zacarias
[2022-06-02] MEDS ORDERED: dexAMETHasone 4 MG TAB PO SCH (08:00)
[2022-06-02] MEDS: ASPIRIN 81 MG ECTAB PO SCH (08:49)
[2022-06-02] MEDS: DOCUSATE SODIUM 100 MG CAP PO SCH (08:49)
[2022-06-02] MEDS ORDERED: MULTIVITAMIN TAB PO SCH (09:00)
[2022-06-02] MEDS ORDERED: amLODIPine BESYLATE 5 MG TAB PO SCH (09:00)
[2022-06-02] MEDS ORDERED: lisinopril 20 MG TAB PO SCH (09:00)
[2022-06-02] MEDS ORDERED: FAMOTIDINE 20 MG TAB PO SCH (09:00)
== END 2022-06-02 16:18 | disposition home health service (06) ==
LOC: 3E 08:24 → ASU 08:24